=== PATIENT | male | born 1980 | race Two or more races ===

== ENCOUNTER 2019-10-20 01:36 | Emergency (ER) | payer MEDICARE, OTHER ==
[2019-10-20] MEDS ORDERED: IBUPROFEN 600 MG TAB PO STA (02:12)
[2019-10-20] MEDS ORDERED: ONDANSETRON 4 MG/2 ML VIAL IVP STA (02:14)
--- NOTE | 2019-10-20 02:15 | ED ---
General Adult HPI - General Chief complaint: Chest Pain Stated complaint: ROSALIA, palpitations Time Seen by Provider: 10/20/19 02:05 Source: patient Mode of arrival: wheelchair Limitations: physical limitation - History of Present Illness Initial comments: 39-year-old male patient presents to the emergency department today with complaints of chest pain and palpitations. Patient states over the last couple of days he has been sick with a cold including cough, nasal congestion, nasal drainage. States he has had a sore throat with this as well. Patient states tonight he woke from sleep with severe body aches, felt dizzy, and was having palpitations. Patient states he did take 1000 g of Tylenol around midnight, this did not seem to help his symptoms. States he is coughing up brown sputum. Denies any hemoptysis. States he is nauseated but has not vomited. Denies any diarrhea. He denies any rash. Denies any recent travel or sick contacts. [place] denies any recent abdominal pain, numbness, tingling, dizziness, weakness, hematuria, dysuria, urinary urgency, urinary frequency, headache, visual changes, or any other complaints. - Related Data Home Medications Medication Instructions Recorded Confirmed Divalproex [Depakote] 1 tab PO DAILY 07/12/16 07/12/16 OXcarbazepine [Trileptal] 1 tab PO DAILY 07/12/16 07/12/16 levETIRAcetam [Keppra] 1 tab PO DAILY 07/12/16 07/12/16 Previous Rx's Medication Instructions Recorded Oseltamivir [Tamiflu] 75 mg PO Q12HR #10 cap 10/20/19 guaiFENesin-DM 600/30MG [Mucinex 2 each PO Q12HR PRN #20 tab.er.12h 10/20/19 Dm] Allergies Allergy/AdvReac Type Severity Reaction Status Date / Time Corticosteroids Allergy Rash/Hives Verified 10/20/19 01:44 (Glucocorticoids) phenytoin [From Dilantin] Allergy Rash/Hives Verified 10/20/19 01:44 topiramate [From Topamax] Allergy Unknown Verified 10/20/19 01:44 Review of Systems ROS Statement: Those systems with pertinent positive or pertinent negative responses have been documented in the HPI. ROS Other: All systems not noted in ROS Statement are negative. Past Medical History Past Medical History: Seizure Disorder, Thyroid Disorder History of Any Multi-Drug Resistant Organisms: None Reported Past Surgical History: Cholecystectomy Past Psychological History: No Psychological Hx Reported Smoking Status: Never smoker Past Alcohol Use History: None Reported Past Drug Use History: None Reported General Exam Limitations: physical limitation General appearance: alert, in no apparent distress, other (This is a well- developed, well-nourished, ill-appearing adult male patient in no acute distress. Vital signs upon presentation are temperature 103.2F, pulse 1:15, respirations 20, blood pressure 145/87, pulse ox 94% on room air.) Eye exam: Present: normal appearance, PERRL, EOMI. Absent: scleral icterus, conjunctival injection, periorbital swelling ENT exam: Present: normal exam, normal oropharynx, mucous membranes moist Respiratory exam: Present: normal lung sounds bilaterally. Absent: respiratory distress, wheezes, rales, rhonchi, stridor Cardiovascular Exam: Present: normal rhythm, tachycardia, normal heart sounds. Absent: systolic murmur, diastolic murmur, rubs, gallop, clicks GI/Abdominal exam: Present: soft, normal bowel sounds. Absent: distended, tenderness, guarding, rebound, rigid Neurological exam: Present: alert, oriented X3, CN II-XII intact Psychiatric exam: Present: normal affect, normal mood Skin exam: Present: warm, dry, intact, normal color. Absent: rash Course Vital Signs 10/20/19 10/20/19 01:40 03:22 Temperature 103.2 F H Pulse Rate 115 H 103 H Respiratory 20 18 Rate Blood Pressure 145/87 138/87 O2 Sat by Pulse 94 L 96 Oximetry EKG Findings - EKG Comments: EKG Findings:: EKG obtained at shows sinus tachycardia with a ventricular rate of 111, RI interval 154, QRS duration 70, QT 96, QTc 402. No evidence of ST elevation or depression. Medical Decision Making - Medical Decision Making 39-year-old male patient presents to the emergency department today for evaluati on of fever, body aches, upper respiratory symptoms. Physical examination revealed clear equal lung sounds. No rash. Labs reviewed and did reveal mildly elevated lactic acid. He was given IV fluids here in the emergency department. He is given ibuprofen. Temperature did improve. He does report improvement of symptoms upon reevaluation. We will start Tamiflu. Prescriptions for Tamiflu and Mucinex be sent to his pharmacy. He is instructed to increase fluids and to rest. He is instructed to follow-up with his primary care physician for recheck in 1-2 days. Return parameters were discussed in detail. He verbalizes understanding and agrees with this plan. - Lab Data Result diagrams: 10/20/19 02:30 10/20/19 02:30 Lab Results 10/20/19 10/20/19 10/20/19 Range/Units 02:30 02:30 02:30 WBC 5.2 (3.8-10.6) k/uL RBC 5.58 (4.30-5.90) m/uL Hgb 16.4 (13.0-17.5) gm/dL Hct 46.1 (39.0-53.0) % MCV 82.7 (80.0-100.0) fL MCH 29.3 (25.0-35.0) pg MCHC 35.5 (31.0-37.0) g/dL RDW 13.8 (11.5-15.5) % Plt Count 147 L (150-450) k/uL Neutrophils % 78 % Lymphocytes % 8 % Monocytes % 11 % Eosinophils % 1 % Basophils % 1 % Neutrophils # 4.0 (1.3-7.7) k/uL Lymphocytes # 0.4 L (1.0-4.8) k/uL Monocytes # 0.5 (0-1.0) k/uL Eosinophils # 0.1 (0-0.7) k/uL Basophils # 0.1 (0-0.2) k/uL PT (9.0-12.0) sec INR (<1.2) APTT (22.0-30.0) sec Sodium 130 L (137-145) mmol/L Potassium 4.7 (3.5-5.1) mmol/L Chloride 98 (98-107) mmol/L Carbon Dioxide 23 (22-30) mmol/L Anion Gap 9 mmol/L BUN 6 L (9-20) mg/dL Creatinine 0.62 L (0.66-1.25) mg/dL Est GFR (CKD-EPI)AfAm >90 (>60 ml/min/1.73 sqM) Est GFR (CKD-EPI)NonAf >90 (>60 ml/min/1.73 sqM) Glucose 105 H (74-99) mg/dL Plasma Lactic Acid Oswaldo 2.8 H* (0.7-2.0) mmol/L Calcium 8.8 (8.4-10.2) mg/dL Total Bilirubin 0.7 (0.2-1.3) mg/dL AST 45 (17-59) U/L ALT 40 (4-49) U/L Alkaline Phosphatase 43 (38-126) U/L Total Protein 7.1 (6.3-8.2) g/dL Albumin 3.9 (3.5-5.0) g/dL Urine Color Urine Appearance (Clear) Urine pH (5.0-8.0) Ur Specific Kake (1.001-1.035) Urine Protein (Negative) Urine Glucose (UA) (Negative) Urine Ketones (Negative) Urine Blood (Negative) Urine Nitrite (Negative) Urine Bilirubin (Negative) Urine Urobilinogen (<2.0) mg/dL Ur Leukocyte Esterase (Negative) Influenza Type A RNA (Not Detectd) Influenza Type B (PCR) (Not Detectd) 10/20/19 10/20/19 10/20/19 Range/Units 02:30 02:45 02:45 WBC (3.8-10.6) k/uL RBC (4.30-5.90) m/uL Hgb (13.0-17.5) gm/dL Hct (39.0-53.0) % MCV (80.0-100.0) fL MCH (25.0-35.0) pg MCHC (31.0-37.0) g/dL RDW (11.5-15.5) % Plt Count (150-450) k/uL Neutrophils % % Lymphocytes % % Monocytes % % Eosinophils % % Basophils % % Neutrophils # (1.3-7.7) k/uL Lymphocytes # (1.0-4.8) k/uL Monocytes # (0-1.0) k/uL Eosinophils # (0-0.7) k/uL Basophils # (0-0.2) k/uL PT 10.3 (9.0-12.0) sec INR 1.0 (<1.2) APTT 24.5 (22.0-30.0) sec Sodium (137-145) mmol/L Potassium (3.5-5.1) mmol/L Chloride (98-107) mmol/L Carbon Dioxide (22-30) mmol/L Anion Gap mmol/L BUN (9-20) mg/dL Creatinine (0.66-1.25) mg/dL Est GFR (CKD-EPI)AfAm (>60 ml/min/1.73 sqM) Est GFR (CKD-EPI)NonAf (>60 ml/min/1.73 sqM) Glucose (74-99) mg/dL Plasma Lactic Acid Oswaldo (0.7-2.0) mmol/L Calcium (8.4-10.2) mg/dL Total Bilirubin (0.2-1.3) mg/dL AST (17-59) U/L ALT (4-49) U/L Alkaline Phosphatase (38-126) U/L Total Protein (6.3-8.2) g/dL Albumin (3.5-5.0) g/dL Urine Color Yellow Urine Appearance Clear (Clear) Urine pH 8.0 (5.0-8.0) Ur Specific Kake 1.024 (1.001-1.035) Urine Protein Trace H (Negative) Urine Glucose (UA) Negative (Negative) Urine Ketones Negative (Negative) Urine Blood Negative (Negative) Urine Nitrite Negative (Negative) Urine Bilirubin Negative (Negative) Urine Urobilinogen <2.0 (<2.0) mg/dL Ur Leukocyte Esterase Negative (Negative) Influenza Type A RNA Detected H (Not Detectd) Influenza Type B (PCR) Not Detected (Not Detectd) - Radiology Data Radiology results: report reviewed, image reviewed Two-view x-ray of the chest is obtained. Report was reviewed in its entirety. Impression by Dr. Rodriguez shows normal chest. Normal heart. No change. Disposition Clinical Impression: Influenza A Disposition: HOME SELF-CARE Condition: Good Instructions (If sedation given, give patient instructions): Influenza (ED) Additional Instructions: Complete Tamiflu prescription in full. Take Tylenol every 6 hours as needed for fever control. Increase fluids. Follow-up with your primary care physician for recheck in 1-2 days. Prescriptions: guaiFENesin-DM 600/30MG [Mucinex Dm] 2 each PO Q12HR PRN #20 tab.er.12h PRN Reason: Cough Oseltamivir [Tamiflu] 75 mg PO Q12HR #10 cap Is patient prescribed a controlled substance at d/c from ED?: No Referrals: Yudy Earl MD [Primary Care Provider] - 1-2 days Time of Disposition: 03:41
--- NOTE | 2019-10-20 02:47 | XR ---
EXAMINATION TYPE: XR chest 2V DATE OF EXAM: 10/20/2019 COMPARISON: 07/12/2016 HISTORY: Cough and congestion TECHNIQUE: 2 views FINDINGS: Heart is normal. Lungs are clear. Diaphragm is normal. Bony thorax appears normal. IMPRESSION: Normal chest. Normal heart. No change.
[2019-10-20 02:54] LABS: Partial Thromboplastin Time 24.5 sec (22.0-30.0); Prothrombin Time 10.3 sec (9.0-12.0)
[2019-10-20 02:55] LABS: ALT 40 U/L (4-49); AST 45 U/L (17-59); African American GFR (CKD) >90 (>60 ml/min/1.73 sqM); Albumin 3.9 g/dL (3.5-5.0); Alkaline Phosphatase 43 U/L (38-126); Anion Gap 9 mmol/L; Basophils # (A) 0.1 k/uL (0-0.2); Basophils % (A) 1 %; Blood Urea Nitrogen 6 mg/dL (9-20); Calcium 8.8 mg/dL (8.4-10.2); Carbon Dioxide 23 mmol/L (22-30); Chloride 98 mmol/L (98-107); Eosinophils # (A) 0.1 k/uL (0-0.7); Eosinophils % (A) 1 %; Glucose 105 mg/dL (74-99); HCT 46.1 % (39.0-53.0); HGB 16.4 gm/dL (13.0-17.5); Lymphocytes # (A) 0.4 k/uL (1.0-4.8); Lymphocytes % (A) 8 %; MCH 29.3 pg (25.0-35.0); MCHC 35.5 g/dL (31.0-37.0); MCV 82.7 fL (80.0-100.0); Mean Platelet Volume 7.7; Monocytes # (A) 0.5 k/uL (0-1.0); Monocytes % (A) 11 %; Neutrophils % (A) 78 %; Non-African American GFR(CKD) >90 (>60 ml/min/1.73 sqM); Platelet Count 147 k/uL (150-450); Potassium 4.7 mmol/L (3.5-5.1); RBC 5.58 m/uL (4.30-5.90); RDW 13.8 % (11.5-15.5); Sodium 130 mmol/L (137-145); Total Bilirubin 0.7 mg/dL (0.2-1.3); Total Protein 7.1 g/dL (6.3-8.2); WBC 5.2 k/uL (3.8-10.6)
[2019-10-20 02:57] LABS: Appearance,Urine Clear (Clear); Bilirubin,Urine Negative (Negative); Blood,Urine Negative (Negative); Color,Urine Yellow; Glucose,Urine (UA) Negative (Negative); Ketones,Urine Negative (Negative); Leukocyte Esterase,Urine Negative (Negative); Nitrite,Urine Negative (Negative); Protein,Urine Trace (Negative); Specific Gravity,Urine 1.024 (1.001-1.035); Urobilinogen,Urine <2.0 mg/dL (<2.0)
[2019-10-20] MEDS: SODIUM CHLORIDE 0.9% 500 ML 500 ML IV SCH ×3 (02:57→04:41)
[2019-10-20] MEDS ORDERED: OSELTAMIVIR 75 MG CAP PO STA (03:16)
[2019-10-20 06:41] VITALS: BP 123/64; PULSE 92; RESP 16; TEMP 99.3
== END 2019-10-20 05:20 | disposition home or self-care (01) ==
LOC: EC 01:36
DX: J10.1 Influenza due to other identified influenza virus with other respiratory manifestations (principal); R74.0 Nonspecific elevation of levels of transaminase and lactic acid dehydrogenase [LDH]; R00.0 Tachycardia, unspecified; R07.9 Chest pain, unspecified; G40.909 Epilepsy, unspecified, not intractable, without status epilepticus; Z88.8 Allergy status to other drugs, medicaments and biological substances; Z79.899 Other long term (current) drug therapy
CPT/HCPCS: 99285; 96374; 96361; 36415; 93005; 80053; 83605; 85025; 85610; 85730; 81003; 87502; 71046; J2405

== ENCOUNTER 2020-11-24 02:30 | Emergency (ER) | payer MEDICARE, OTHER ==
--- NOTE | 2020-11-24 03:01 | ED ---
ENT HPI - General Chief complaint: ENT Stated complaint: ENT Time Seen by Provider: 11/24/20 02:36 Source: patient, RN notes reviewed, old records reviewed Mode of arrival: ambulatory Limitations: no limitations - History of Present Illness Initial comments: this is a 40-year-old male to the ER for evaluation patient presents today for evaluation regards to sore throat. Patient has had symptoms for 3 days, does have seizure disorder but no other significant medical history. No difficulty swallowing no fevers no cough. No recent travel history or sick contacts. Patient denies possible coronavirus MD complaint: sore throat -: days(s) (3) Severity: mild Severity scale (1-10): 2 Consistency: constant Improves with: none Worsens with: swallowing Context-Epistaxis: history of similar Context- Dental: other (None) Context- Ear: other (none) Associated Symptoms: pain with swallowing, sore throat - Related Data Home Medications Medication Instructions Recorded Confirmed Divalproex [Depakote] 1 tab PO DAILY 07/12/16 07/12/16 OXcarbazepine [Trileptal] 1 tab PO DAILY 07/12/16 07/12/16 levETIRAcetam [Keppra] 1 tab PO DAILY 07/12/16 07/12/16 Previous Rx's Medication Instructions Recorded Oseltamivir [Tamiflu] 75 mg PO Q12HR #10 cap 10/20/19 guaiFENesin-DM 600/30MG [Mucinex 2 each PO Q12HR PRN #20 tab.er.12h 10/20/19 Dm] Amoxic-Pot Clav 875-125Mg 1 tab PO Q12HR #20 tablet 11/24/20 [Augmentin 875-125] Allergies Allergy/AdvReac Type Severity Reaction Status Date / Time Corticosteroids Allergy Rash/Hives Verified 11/24/20 02:37 (Glucocorticoids) phenytoin [From Dilantin] Allergy Rash/Hives Verified 11/24/20 02:37 topiramate [From Topamax] Allergy Unknown Verified 11/24/20 02:37 Review of Systems ROS Statement: Those systems with pertinent positive or pertinent negative responses have been documented in the HPI. ROS Other: All systems not noted in ROS Statement are negative. Past Medical History Past Medical History: Seizure Disorder, Thyroid Disorder History of Any Multi-Drug Resistant Organisms: None Reported Past Surgical History: Cholecystectomy Past Psychological History: No Psychological Hx Reported Smoking Status: Never smoker Past Alcohol Use History: None Reported Past Drug Use History: None Reported General Exam Limitations: no limitations General appearance: alert, in no apparent distress Head exam: Present: atraumatic, normocephalic, normal inspection Eye exam: Present: normal appearance, PERRL, EOMI. Absent: scleral icterus, conjunctival injection, periorbital swelling ENT exam: Present: normal exam, mucous membranes moist, other (Mild tonsillar erythema) Neck exam: Present: normal inspection. Absent: tenderness, meningismus, lymphadenopathy Respiratory exam: Present: normal lung sounds bilaterally. Absent: respiratory distress, wheezes, rales, rhonchi, stridor Cardiovascular Exam: Present: regular rate, normal rhythm, normal heart sounds. Absent: systolic murmur, diastolic murmur, rubs, gallop, clicks GI/Abdominal exam: Present: soft, normal bowel sounds. Absent: distended, tenderness, guarding, rebound, rigid Extremities exam: Present: normal inspection, full ROM, normal capillary refill. Absent: tenderness, pedal edema, joint swelling, calf tenderness Back exam: Present: normal inspection Neurological exam: Present: alert, oriented X3, CN II-XII intact Psychiatric exam: Present: normal affect, normal mood Skin exam: Present: warm, dry, intact, normal color. Absent: rash Course Vital Signs 11/24/20 11/24/20 02:37 04:56 Temperature 98.8 F 98.5 F Pulse Rate 78 71 Respiratory 16 18 Rate Blood Pressure 155/101 141/87 O2 Sat by Pulse 97 98 Oximetry Medical Decision Making - Medical Decision Making 38 female the ER positive for acute pharyngitis. X-ray and soft tissue neck x- ray are negative for acute disease. Patient can be discharged home - Lab Data Lab Results 11/24/20 Range/Units 03:39 Coronavirus (PCR) Not Detected (Not Detectd) Group A Strep Rapid Negative (Negative) - Radiology Data Radiology results: report reviewed (Soft tissue neck x-ray and chest x-ray negative for acute disease), image reviewed Disposition Clinical Impression: Sore throat, Pharyngitis Disposition: HOME SELF-CARE Condition: Good Instructions (If sedation given, give patient instructions): Pharyngitis (ED) Prescriptions: Amoxic-Pot Clav 875-125Mg [Augmentin 875-125] 1 tab PO Q12HR #20 tablet Is patient prescribed a controlled substance at d/c from ED?: No Referrals: Yudy Earl MD [Primary Care Provider] - 1-2 days
[2020-11-24 04:11] LABS: SARS-CoV-2 RNA Rapid Abbott Not Detected (Not Detectd)
--- NOTE | 2020-11-24 04:13 | XR ---
EXAM: XR Chest, 1 View CLINICAL HISTORY: pain TECHNIQUE: Frontal view of the chest. COMPARISON: 10/20/19 FINDINGS: Lungs: No significant abnormality. No consolidation. Pleural space: No significant abnormality. No pneumothorax. Heart: No significant abnormality. No cardiomegaly. Mediastinum: No significant abnormality. Bones/joints: No acute osseous abnormality. IMPRESSION: No acute cardiopulmonary process.
--- NOTE | 2020-11-24 04:15 | XR ---
EXAM: XR Soft Tissue Neck CLINICAL HISTORY: pain TECHNIQUE: Frontal and lateral views of the soft tissues of the neck. COMPARISON: No relevant prior studies available. FINDINGS: Limitations: Patient rotation. Airway: No significant abnormality. No abnormal narrowing. Bones/joints: No acute osseous abnormality. Degenerative changes of the cervical spine. Prominent anterior osteophytes. Soft tissues: The epiglottis is not well seen. Prominent submental soft tissues. No radiopaque foreign body. IMPRESSION: Limited, rotated exam. Normal prevertebral soft tissues. The epiglottis is not well seen.
[2020-11-24] MEDS ORDERED: AMOXIC-POT CLAV 875-125MG 1 EACH TAB PO STA (04:26)
[2020-11-24] MEDS ORDERED: AMOXIC-POT CLAV 875MG STARTER PACK 2 TAB BTL PO STA (04:26)
[2020-11-24 05:02] VITALS: BP 141/87; PULSE 71; RESP 18; TEMP 98.5
== END 2020-11-24 04:56 | disposition home or self-care (01) ==
LOC: EC 02:30
DX: J02.9 Acute pharyngitis, unspecified (principal); G40.909 Epilepsy, unspecified, not intractable, without status epilepticus; Z20.822 Contact with and (suspected) exposure to COVID-19; Z79.899 Other long term (current) drug therapy; Z88.8 Allergy status to other drugs, medicaments and biological substances
CPT/HCPCS: 70360; 71045; 87081; 87430; 87635; 99284